=== PATIENT | female | born 1990 | race African-American/Black ===

== ENCOUNTER 2020-12-30 03:33 | Inpatient (IN) ==
[2020-12-30] MEDS ORDERED: ONDANSETRON 4 MG/2 ML VIAL IV PRN (03:44)
[2020-12-30] MEDS ORDERED: MEPERIDINE 50 MG/1 ML VIAL IV PRN (03:49)
[2020-12-30] MEDS ORDERED: OXYTOCIN/LR 20 UNIT/1,000 ML BAG IV SCH (04:00)
[2020-12-30] MEDS: LACTATED RINGERS 1,000 ML IV SCH ×2 (04:15→09:48)
[2020-12-30 04:17] LABS: Basophils % 0.3 % (0.0-0.8); Eosinophils # 0.2 10*3/uL (0.0-0.87); Eosinophils % 1.7 % (0.00-10.9); Hematocrit 26.4 VOL% (35.7-47.0); Hemoglobin 8.5 GM/DL (12.0-16.0); Immature Granulocytes % 0.8 %; Immature Granulocytes Absolute 0.09 #; Lymphocytes # 2.6 10*3/uL (1.4-4.0); Lymphocytes % 23.1 % (21.3-54.2); Mean Corpuscular HGB Conc 32.2 GM/DL (32-36); Mean Corpuscular Volume 66.5 FL (87-102); Monocytes % 5.8 % (1.7-12.7); Neutrophils % 68.3 % (38.7-73.9); Platelet Count 359 T/CUMM (130-400); Red Blood Count 3.97 MC/CUMM (3.8-5.5); Red Cell Distribution Width 19.9 % (9.3-17.3); White Blood Count 11.1 T/CUMM (4-12)
[2020-12-30 05:04] LABS: Albumin 2.4 G/DL (3.4-5.0); Bilirubin,Total 0.8 MG/DL (0.2-1.0); Calcium 8.2 MG/DL (8.5-10.1); Osmolality,Calculated 273.5 MOS/KG (273-304); Potassium 3.2 MMOL/L (3.5-5.1)
[2020-12-30] MEDS ORDERED: hydrOXYzine HCL 25 MG/1 ML VIAL IM PRN (07:30)
[2020-12-30] MEDS ORDERED: FAMOTIDINE 20 MG/2 ML VIAL IV ONE (07:30)
[2020-12-30] MEDS ORDERED: ePHEDrine 50 MG/ML VIAL IV PRN (07:30)
[2020-12-30] MEDS ORDERED: CITRIC ACID/SODIUM CITRATE 30 ML UDCUP PO ONE (07:30)
[2020-12-30] MEDS ORDERED: fentaNYL 100 MCG/2 ML VIAL IV ONE (07:30)
[2020-12-30] MEDS ORDERED: diphenhydrAMINE 50 MG/1 ML VIAL IV PRN (07:30)
[2020-12-30] MEDS ORDERED: PROMETHAZINE 25 MG/1 ML VIAL IM PRN (07:30)
[2020-12-30] MEDS ORDERED: fentaNYL 2 MCG/ROPIV 0.2% EPID 100 ML EPIDURAL ONE (09:04)
[2020-12-30] MEDS ORDERED: fentaNYL 2 MCG/ROPIV 0.2% EPID 100 ML EPIDURAL SCH (10:30)
[2020-12-30 12:44] LABS: Bilirubin,Urine Negative (Negative); Blood, Urine Negative (Negative); Glucose,Urine (UA) Negative (Negative); Ketones,Urine Negative (Negative); Mucus,Urine Occasional /LPF (Occasional); Nitrite,Urine Negative (Negative); Protein,Urine Negative; RBC,Urine 1 /HPF (0-4); Squamous Epithelial Cell,Urine Occasional /HPF (0-10); Urine Appearance CLEAR (Clear); Urine Color Yellow (Yellow); Urine Specific Gravity 1.013 (1.001-1.035); WBC,Urine 1 /HPF (0-6)
[2020-12-30] MEDS ORDERED: METHYLERGONOVINE 0.2 MG/1 ML AMP ONE (13:29)
[2020-12-30] MEDS ORDERED: CARBOPROST TROMETHAMINE 250 MCG/ML AMP IM ONE (13:29)
[2020-12-30] MEDS ORDERED: miSOPROStoL 200 MCG TABLET ONE (13:29)
[2020-12-30 14:02] LABS: Cord Venous Blood HCO3 22.7 MMOL/L; Cord Venous Blood PCO2 45.1 MMHG; Cord Venous Blood PO2 26.9
[2020-12-30] MEDS ORDERED: IBUPROFEN 100 MG/5 ML UDCUP PO PRN (16:05)
[2020-12-30] MEDS: POTASSIUM CHLORIDE 20 MEQ/15 ML UDCUP PO PRN ×4 (17:34→23:39)
[2020-12-30] MEDS ORDERED: DOCUSATE SODIUM 100 MG/10 ML UDCUP PO SCH (21:00)
[2020-12-30] MEDS ORDERED: FERROUS SULFATE 300 MG/5 ML UDCUP PO SCH (21:00)
[2020-12-30] MEDS: FERROUS SULFATE 325 MG TABLET PO SCH (21:23)
[2020-12-30] MEDS: DOCUSATE SODIUM 100 MG CAPSULE PO SCH (21:23)
[2020-12-30] MEDS: IBUPROFEN 100 MG/5 ML UDCUP PO PRN (23:59)
[2020-12-31 06:31] LABS: Basophils % 0.2 % (0.0-0.8); Eosinophils # 0.3 10*3/uL (0.0-0.87); Eosinophils % 2.4 % (0.00-10.9); Immature Granulocytes % 0.7 %; Immature Granulocytes Absolute 0.09 #; Lymphocytes # 3.1 10*3/uL (1.4-4.0); Lymphocytes % 24.2 % (21.3-54.2); Mean Corpuscular HGB Conc 33.3 GM/DL (32-36); Mean Corpuscular Volume 64.3 FL (87-102); Mean Platelet Volume 9.7 FL (9.6-12.0); Monocytes % 5.4 % (1.7-12.7); Neutrophils % 67.1 % (38.7-73.9); Platelet Count 287 T/CUMM (130-400); Red Blood Count 3.73 MC/CUMM (3.8-5.5); Red Cell Distribution Width 20.3 % (9.3-17.3); White Blood Count 12.6 T/CUMM (4-12)
[2020-12-31] MEDS: IBUPROFEN 100 MG/5 ML UDCUP PO PRN ×2 (07:11→14:12)
[2020-12-31] MEDS: DOCUSATE SODIUM 100 MG CAPSULE PO SCH ×2 (09:02→20:29)
[2020-12-31] MEDS: FERROUS SULFATE 325 MG TABLET PO SCH ×3 (09:02→20:30)
[2020-12-31] MEDS: MAGNESIUM HYDROXIDE SUSP 30 ML UDCUP PO PRN (11:52)
[2021-01-01] MEDS: IBUPROFEN 100 MG/5 ML UDCUP PO PRN (03:54)
[2021-01-01 08:59] VITALS: BP 121/66
[2021-01-01] MEDS: FERROUS SULFATE 325 MG TABLET PO SCH (09:23)
[2021-01-01] MEDS: MAGNESIUM HYDROXIDE SUSP 30 ML UDCUP PO PRN (09:25)
[2021-01-01] MEDS: DOCUSATE SODIUM 100 MG CAPSULE PO SCH (09:25)
== END 2021-01-01 14:00 | disposition home or self-care (01) | DRG 560 ==
LOC: N.LD 03:33 → N.OB 16:48
PROVIDERS: ADMIT Obstetrics & Gynecology; ATTEND Obstetrics & Gynecology